=== PATIENT | male | born 1960 | race Caucasian/White ===

== ENCOUNTER 2016-12-02 15:19 | Emergency (ER) | payer OTHER, MEDICAID ==
[~2016-12-02] VITALS: Ht 185.4 cm; Wt 117.9 kg
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
[2016-12-02 16:43] LABS: HEMOGLOBIN 11.2 g/dL (14.1-18.0); LYMPH # 2.1 K/mm3 (0.7-4.5); LYMPH % 31.8 % (10-50)
[2016-12-02] MEDS ORDERED: ROBAXIN-750750 MG PO (18:07)
[2016-12-02] MEDS ORDERED: PERCOCET1 TAB PO (18:07)
[2016-12-02 20:15] VITALS: BP 120/73
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
== END 2016-12-02 20:15 | disposition home or self-care (01) ==
LOC: ER 15:19
PROVIDERS: Emergency Medicine
DX: S39.012A Strain of muscle, fascia and tendon of lower back, initial encounter (principal); S16.1XXA Strain of muscle, fascia and tendon at neck level, initial encounter; S00.03XA Contusion of scalp, initial encounter; V89.2XXA Person injured in unspecified motor-vehicle accident, traffic, initial encounter; Z79.01 Long term (current) use of anticoagulants
CPT/HCPCS: J2405; Q9967